=== PATIENT | male | born 1985 | race Caucasian/White ===

== ENCOUNTER 2022-06-20 13:18 | Emergency (ER) | payer OTHER ==
[~2022-06-20] VITALS: Ht 172.7 cm; Wt 148.9 kg
[2022-06-20 14:27] LABS: BASO # 0.1 10^3/uL (0.0-0.2); BASO % 0.5 % (0.0-1.0); EOS # 0.2 10^3/uL (0.0-0.5); EOS % 1.4 % (0.0-3.0); HEMATOCRIT 46.5 % (42.0-52.0); HEMOGLOBIN 14.7 g/dl (13.5-17.5); LYMPH # 1.7 10^3/uL (1.5-5.0); LYMPH % 13.4 % (24.0-44.0); MEAN CORPUSCULAR HEMOGLOBIN 27.5 pg (27.0-33.0); MEAN CORPUSCULAR HGB CONC 31.6 g/dl (32.0-36.5); MEAN CORPUSCULAR VOLUME 87.1 fl (80.0-96.0); MONO # 0.8 10^3/uL (0.0-0.8); MONO % 6.1 % (2.0-8.0); NEUTROPHILS # 9.9 10^3/uL (1.5-8.5); NEUTROPHILS % 78.4 % (36.0-66.0); PLATELET COUNT, AUTOMATED 342 10^3/uL (150-450); RED BLOOD COUNT 5.34 10^6/uL (4.30-6.10); WHITE BLOOD COUNT 12.6 10^3/uL (4.0-10.0)
[2022-06-20 14:34] LABS: ERYTHROCYTE SEDIMENTATION RATE 43 mm/hr (0-15)
[2022-06-20 14:53] LABS: BLOOD UREA NITROGEN 13 MG/DL (9-23); CALCIUM LEVEL 9.2 MG/DL (8.5-10.1); CARBON DIOXIDE LEVEL 27 MMOL/L (20-31); CHLORIDE LEVEL 107 MMOL/L (98-107); CREATININE FOR GFR 0.71 MG/DL (0.70-1.30); GLOMERULAR FILTRATION RATE > 60.0 (>60); GLUCOSE, FASTING 95 MG/DL (60-100); POTASSIUM SERUM 4.5 MMOL/L (3.5-5.1); SODIUM LEVEL 143 MMOL/L (136-145)
[2022-06-20] MEDS ORDERED: cefTRIAXone SOD 1 GM in D5W MINI-BAG PLUS 50 ML IV ONE (16:10)
[2022-06-20] MEDS ORDERED: methylPREDNISolone 125MG 2ML VIAL IV ONE (16:10)
[2022-06-20] MEDS ORDERED: NS 1,000 ML IV ONE (16:10)
[2022-06-20] MEDS ORDERED: KETOROLAC 30 MG/ML 1ML VIAL IV ONE (16:10)
[2022-06-20] MEDS ORDERED: ISOVUE-370 76% 100ML VIAL As Ordered ONE (16:20)
[2022-06-20 17:32] VITALS: BP 154/94
[2022-06-20] MEDS ORDERED: MAGICMW SSP (17:34)
[2022-06-20] MEDS ORDERED: PRED20TA PO (17:34)
[2022-06-20] MEDS ORDERED: AMOX875T2 PO (17:34)
== END 2022-06-20 18:05 | disposition home or self-care (01) ==
LOC: M ED 13:18
DX: K04.7 Periapical abscess without sinus (principal); R22.0 Localized swelling, mass and lump, head